=== PATIENT | female | born 1980 | race Caucasian/White ===

== ENCOUNTER 2017-07-14 15:47 | Emergency (ER) | payer OTHER ==
--- NOTE | 2017-07-14 16:42 | PD ---
HPI Chief Complaint Decreased movement Date Seen: Jul 14, 2017 Time Seen: 16:35 Travel History International Travel<30 Days: No Contact w/Intl Traveler<30Days: No Known Affected Area: No History of Present Illness HPI 37-year-old white female at 33 weeks he goes to the [facility] clinic and presents complaining of decreased movement over the last couple of days, no other pains or problems no leakage of fluid or bleeding, heart rate tracing is reactive here on OB ED and the patient says she does feel baby move some since she has been here. 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 Weeks Gestation: 33 Para: 0 : 1 History Social History Alcohol Use: No Tobacco Use: No Substance Abuse: No Allergies-Medications (Allergen,Severity, Reaction): Coded Allergies: No Known Allergies (Verified Allergy, Severe, 07/14/17) Uncoded Allergies: no known allergy (Allergy, Unknown, 07/14/17) Home Meds Reported Medications Buspirone (Buspirone) 10 Mg Tab, 10 MG PO DAILY for Anxiety, TAB 0 Refills 07/14/17 Review of Systems General / Constitutional: No: Fever, Weight Gain, Chills, Other Eyes: No: Diploplia, Blurred Vision, Visual changes, Pain, Photophobia HENT: No: Headaches, Vertigo, Lightheadedness Cardiovascular: No: Irregular Rhythm, Chest Pain or Discomfort, Palpitations, Tachycardia, Syncope, Varicosities, Edema, Cyanosis Respiratory: No: Cough, Short of Breath, Other Gastrointestinal: No: Nausea, Vomiting, Diarrhea Genitourinary: No: Decreased Urinary Output, Oliguria Musculoskeletal: No: Limited ROM, Weakness, Cramping, Edema, Pain Skin: No Rash, No Itching, No Dryness, No Lumps, No Change in Pigmentation, No Change in Nails, No Alopecia, No Lesions Neurologic: No: Weakness, Dizziness, Syncope, Focal Abnormalities, Coordination Problem, Headache, Slurred Speech, Seizures Psychiatric: No: Depression, Suicidal Ideations, Homicidal Ideation Endocrine: No: Heat Intolerance, Cold Intolerance, Polydipsia, Polyuria, Other Physical Exam Narrative GENERAL: Well-nourished, well-developed patient. SKIN: Warm and dry. HEAD: Normocephalic and atraumatic. EYES: No scleral icterus. No injection or drainage. ENT: No nasal drainage noted. Mucous membranes pink. Airway patent. NECK: Supple, trachea midline. No JVD. CARDIOVASCULAR: Regular rate and rhythm without murmurs, gallops, or rubs. RESPIRATORY: Breath sounds equal bilaterally. No accessory muscle use. BREASTS: Bilateral exam showed no masses , no retractions, no nipple discharge. ABDOMEN/GI: Abdomen soft, non-tender, bowel sounds present, no rebound, no guarding Gravid to [33-] weeks size Fundal Height: [-33] GENITOURINARY: External Genitalia: intact and normal in appearance BUS glands: [-] Cervix: [post-] Dilatation: [0-] Effacement: [-0] Station: [-3] ] Membranes: [intact ] Uterine Contractions: [-q 6 min] FHT's: Category: [-1] Baseline: [-133] Reactive: [-R] Variability: [mod-] Decels: [-none] EXTREMITIES: No cyanosis or edema. BACK: Nontender without obvious deformity. No CVA tenderness. NEUROLOGICAL: Awake and alert. Motor and sensory grossly within normal limits. Five out of 5 muscle strength in all muscle groups. Normal speech. MDM Interpretation(s) This patient is a 37-year-old white female at [address] Andujar for care and presents complaining of decreased movement for several days, movement noted here on OB ED by the patient the NST is reactive, however she also is zoe about every 6 minutes but she does not really feel that. Plan to hydrate po if necessary some subcu terbutaline for the contractions. Plan Plan for patient to the observe for kick counts discussed with patient. She is to follow-up with her OB provider. Diagnosis Diagnosis: Primary Impression: Decreased movement affecting management of in third trimester Disposition: 01 DISCHARGE HOME Condition: Stable James Mendoza II, MD Jul 14, 2017 16:41
[2017-07-14] MEDS ORDERED: TERBUTALINE INJ 1 MG/ML AMP SQ ONE (16:45)
[2017-07-14] MEDS ORDERED: BUSP10TA PO (16:45)
== END 2017-07-14 18:13 | disposition home or self-care (01) ==
LOC: HOBED 15:47
DX: O36.8130 Decreased fetal movements, third trimester, not applicable or unspecified (principal); Z3A.33 33 weeks gestation of pregnancy
CPT/HCPCS: 59025; 96372; 99283; J3105

== ENCOUNTER 2017-08-24 18:12 | Inpatient (IN) | payer OTHER ==
[~2017-08-24 18:12] MED LIST: BUSP10TA PO
[2017-08-24] MEDS ORDERED: LACTATED RINGER'S 1000 ML INJ 1,000 ML IV PRN (18:36)
[2017-08-24] MEDS ORDERED: LACTATED RINGER'S 1000 ML INJ 1,000 ML IV SCH (18:36)
[2017-08-24] MEDS ORDERED: LIDOCAINE HCL 1% 50 ML VIAL INFIL PRN (18:45)
[2017-08-24] MEDS ORDERED: OXYTOCIN 30 UNITS-500ML PREMIX 500 ML IV ONE (18:45)
[2017-08-24] MEDS ORDERED: CITRIC ACID-SODIUM CITRATE LIQ 30 ML UDC PO SCH (18:45)
[2017-08-24] MEDS ORDERED: LIDOCAINE HCL 1% 50 ML VIAL I-DERMAL PRN (18:45)
[2017-08-24] MEDS ORDERED: MINERAL OIL 10 ML VIAL TOPICAL PRN (18:45)
[2017-08-24] MEDS ORDERED: ONDANSETRON HCL 4 MG/2 ML VIAL IV PUSH PRN (18:45)
[2017-08-24] MEDS ORDERED: SODIUM CHLORID 0.9% 500 ML INJ 500 ML IV PRN (18:45)
[2017-08-24] MEDS ORDERED: SODIUM CHLOR 0.9% 1000 ML INJ 1,000 ML IV PRN (18:56)
--- NOTE | 2017-08-24 19:21 | HHI.HP ---
History & Physical H&P HPI Chief Complaint ctxs Date Seen: August 24, 2017 Time Seen: 19:15 Travel History International Travel<30 Days: No Contact w/Intl Traveler<30Days: No Known Affected Area: No History of Present Illness HPI pt is a 37 y/o @ 39 3/7 weeks present w/ c/o ctxs. pt. states been having ctxs for the last 2 days that have increased in intensity and frequency throughout the day. pt. cervix checked at pn on 08/23 and was 3cm and on exam today cervix changed to 5 cm. Weeks Gestation: 39 Para: 0 : 1 History (Limited) History Past Medical History Medical History: Denies Significant Hx Obstetric History Obstetric History Past Surgical History Surgical History: No Previous Surgery Family History Family History: Negative Social History Alcohol Use: No Tobacco Use: No Substance Abuse: No Allergies-Medications Allergies-Medications (Allergen,Severity, Reaction): Coded Allergies: No Known Allergies (Verified Allergy, Severe, 07/14/17) Uncoded Allergies: no known allergy (Allergy, Unknown, 07/14/17) Home Meds Reported Medications Buspirone (Buspirone) 10 Mg Tab, 10 MG PO DAILY for Anxiety, TAB 0 Refills 07/14/17 ROS Review of Systems Except as stated in HPI: all other systems reviewed are Neg Physical Exam Physical Exam Narrative GENERAL: Well-nourished, well-developed patient. SKIN: Warm and dry. HEAD: Normocephalic and atraumatic. EYES: No scleral icterus. No injection or drainage. ENT: No nasal drainage noted. Mucous membranes pink. Airway patent. NECK: Supple, trachea midline. No JVD. CARDIOVASCULAR: Regular rate and rhythm without murmurs, gallops, or rubs. RESPIRATORY: Breath sounds equal bilaterally. No accessory muscle use. ABDOMEN/GI: Abdomen soft, non-tender, bowel sounds present, no rebound, no guarding Gravid GENITOURINARY: External Genitalia: intact and normal in appearance Dilatation:5 Effacement: 90 Station: high Presentation: cephalic Membranes: intact Uterine Contractions: q2-3 mins FHT's: Category: 1 Reactive: + Variability: mod EXTREMITIES: No cyanosis or edema. BACK: Nontender without obvious deformity. No CVA tenderness. NEUROLOGICAL: Awake and alert. Motor and sensory grossly within normal limits. Five out of 5 muscle strength in all muscle groups. Normal speech. Data Data Data Vital Signs Reviewed: Yes Orders Orders Ob (2e) Additional Admit Info (08/24/17 18:32) Admit To Inpatient (08/24/17 ) Code Status (08/24/17 18:36) Vital Signs (Adult) .Per protocol (08/24/17 18:36) Activity Oob Ad Janet (08/24/17 18:36) Heart (08/24/17 18:36) Amnioinfusion (08/24/17 18:36) Urinary Catheter Management .ONCE (08/24/17 18:36) Diet Liquid (08/24/17 Dinner) Lactated Ringer's 1000 Ml Inj (Lr 1000 M (08/24/17 18:36) Lactated Ringer's 1000 Ml Inj (Lr 1000 M (08/24/17 18:36) Sodium Chlorid 0.9% 500 Ml Inj (Ns 500 M (08/24/17 18:45) Sodium Chlor 0.9% 1000 Ml Inj (Ns 1000 M (08/24/17 18:56) Lidocaine 1% Inj (50 Ml) (Xylocaine 1% I (08/24/17 18:45) Citric Acid-Sodium Citrate Liq (Bicitra (08/24/17 18:45) Ondansetron Inj (Zofran Inj) (08/24/17 18:45) Fentanyl Inj (Fentanyl Inj) (08/24/17 18:45) Fentanyl Inj (Fentanyl Inj) (08/24/17 18:45) Complete Blood Count With Diff (08/24/17 18:36) Hold Clot (08/24/17 18:36) Abo/Rh Blood Type (08/24/17 18:36) Urinalysis - C+S If Indicated (08/24/17 18:36) Drug Screen, Random Urine (08/24/17 18:36) Ob/Psych Drug Screen, Urine (08/24/17 18:36) Resp Oxygen Non Rebreathe Mask (08/24/17 ) ^ Epidural / Intrathecal Infus (08/24/17 18:36) Oxytocin 30 Units-500ml Premix (Pitocin (08/24/17 18:45) Lidocaine 1% Inj (50 Ml) (Xylocaine 1% I (08/24/17 18:45) Light Mineral Oil (Muri-Lube Oil) (08/24/17 18:45) Inpatient Certification (08/24/17 ) Group B Strep: Negative MDM MDM Medical Record Reviewed: Yes Plan pt. in active labor. pt. to be admitted. fentanyl vs epidural for analgesia. fht reassuring. pt. d/w dr. dietz. Diagnosis Diagnosis: Primary Impression: Uterine contractions Additional Impression: 39 weeks gestation of Spencer Chun Jr., MD August 24, 2017 19:21
[2017-08-24] MEDS ORDERED: fentaNYL 2MCG-BUPIV 0.125% INJ 150 ML EPIDURAL ONE (19:29)
[2017-08-24] MEDS ORDERED: LIDOCAINE 2%/EPINEPHrine 1:100,000 20ML MDV ONE (19:38)
[2017-08-24 19:42] LABS: AUTOMATED NEUTROPHIL # 9.4 TH/MM3 (1.8-7.7); BASOPHIL # 0.1 TH/MM3 (0-0.2); BASOPHIL % 0.4 % (0.0-2.0); EOSINOPHIL # 0.1 TH/MM3 (0-0.4); EOSINOPHIL % 0.5 % (0.0-4.0); HEMATOCRIT 38.9 % (35.0-46.0); HEMOGLOBIN 13.8 GM/DL (11.6-15.3); LYMPH % 20.7 % (9.0-44.0); LYMPHOCYTE # 2.7 TH/MM3 (1.0-4.8); MEAN CELL VOLUME 86.8 FL (80.0-100.0); MEAN CORPUSCULAR HEMOGLOBIN 30.8 PG (27.0-34.0); MEAN CORPUSCULAR HGB CONC 35.5 % (32.0-36.0); MEAN PLATELET VOLUME 10.9 FL (7.0-11.0); MONO % 6.9 % (0.0-8.0); MONOCYTE # 0.9 TH/MM3 (0-0.9); NEUT % 71.5 % (16.0-70.0); PLATELET COUNT 236 TH/MM3 (150-450); RED BLOOD COUNT 4.48 MIL/MM3 (4.00-5.30); WHITE BLOOD COUNT 13.2 TH/MM3 (4.0-11.0)
[2017-08-24 19:46] LABS: BACTERIA, URINE RARE /hpf; BILIRUBIN, URINE NEG (NEG); BLOOD, URINE NEG (NEG); GLUCOSE,URINE NEG (NEG); KETONE, URINE NEG (NEG); MUCUS URINE FEW /lpf (OCC); NITRITE,URINE NEG (NEG); SQUAMOUS EPITHELIAL CELL URINE <1 /hpf (0-5); URINE COLOR YELLOW (YELLW/STRAW); URINE LEUKOCYTE ESTERASE NEG (NEG)
[2017-08-24] MEDS ORDERED: OXYTOCIN 30 UNITS/NS 500ML PREMIX IV PRN (22:15)
--- NOTE | 2017-08-25 02:59 | PD.OB.DELI ---
Weeks gestation: 39 Gest age assessed date: August 25, 2017 Gest age assessed time: 02:58 Pt started active labor?: Yes Active labor start date: August 24, 2017 Active labor start time: 18:45 Medical induction of labor?: No Artificial rupture of membrane: No Anesthesia: Epidural Episiotomy: Midline Vaginal Delivery: Vacuum (x 2 pulls) Presentation: Occiput anterior (EVE) Nuchal Cord: x1 Delayed cord clamping (45 sec): No Infant: Male Delivery date: August 25, 2017 Delivery time: 02:37 One Minute : 3 Five Minute : 7 Placenta: Spontaneous delivery Laceration: Episiotomy Repair: Chromic running, Vicryl running Estimated blood loss: 250cc Kat Jansen MD August 25, 2017 02:59
[2017-08-25] MEDS ORDERED: ZOLPIDEM TARTRATE 5 MG TAB PO PRN (03:00)
[2017-08-25] MEDS ORDERED: ONDANSETRON ODT 4 MG TAB PO PRN (03:00)
[2017-08-25] MEDS ORDERED: BENZOCAINE 20% TOPICAL SPRAY 60 ML CAN TOPICAL PRN (03:00)
[2017-08-25] MEDS ORDERED: OXYTOCIN 30 UNITS-500ML PREMIX 500 ML IV SCH (03:00)
[2017-08-25] MEDS ORDERED: WITCH HAZEL 50%/GLYCERIN 12.5% 40 PAD JAR TOPICAL PRN (03:00)
[2017-08-25] MEDS ORDERED: ACETAMINOPHEN 325 MG TAB PO PRN (03:00)
[2017-08-25] MEDS ORDERED: oxyCODONE/ACETAMINOPHEN 5 MG/325 MG TAB PO PRN (03:00)
[2017-08-25] MEDS ORDERED: DOCUSATE SODIUM 50 MG/SENNA 8.6 MG TAB PO PRN (03:00)
[2017-08-25] MEDS ORDERED: ALUMINUM/MAGNESIUM/SIMETH 30 ML CUP PO PRN (03:00)
[2017-08-25] MEDS ORDERED: SODIUM CHLORIDE 0.9% FLUSH 10 ML FLUSH IV FLUSH PRN (03:00)
[2017-08-25] MEDS: IBUPROFEN 800 MG TAB PO PRN ×2 (06:45→14:50)
[2017-08-25] MEDS: SODIUM CHLORIDE 0.9% FLUSH 10 ML FLUSH IV FLUSH SCH (09:00)
[2017-08-25] MEDS ORDERED: DIPHTH/TETANUS/ACEL PERTUSSIS (BOOSTER) 0.5 ML VIAL/PFS IM ONE (16:00)
[2017-08-25] MEDS ORDERED: MEASLES, MUMPS, RUBELLA VACCINE 0.5 ML VIAL SQ ONE (16:00)
[2017-08-25] MEDS: oxyCODONE/ACETAMINOPHEN 5 MG/325 MG TAB PO PRN (20:11)
[2017-08-26] MEDS: IBUPROFEN 800 MG TAB PO PRN ×3 (00:38→18:16)
[2017-08-26] MEDS: oxyCODONE/ACETAMINOPHEN 5 MG/325 MG TAB PO PRN (00:39)
[2017-08-26] MEDS: SODIUM CHLORIDE 0.9% FLUSH 10 ML FLUSH IV FLUSH SCH (09:00)
--- NOTE | 2017-08-26 10:42 | HHI.OB ---
Subjective Post Day: 1 Remarks Seen in NICU where baby at breast exhausted and some tingling and pain in right hand below IV site no nausea pain controlled Objective Objective Remarks GENERAL: Well-nourished, well-developed patient. CARDIOVASCULAR: Regular rate and rhythm without murmurs, gallops, or rubs. RESPIRATORY: Breath sounds equal bilaterally. No accessory muscle use. ABDOMEN/GI: Abdomen soft, non-tender. Fundus: Firm, non-tender at umbilicus. GENITOURINARY: Light to moderate bleeding. EXTREMITIES: No cyanosis or edema, non-tender, without signs of DVT. Medications and IVs Current Medications Medications (Trade) Dose Ordered Sig/Bert Route Start Time Stop Time Status Last Admin (NS Flush) 2 ml BID IV FLUSH 08/25/17 09:00 (NS Flush) 2 ml UNSCH PRN IV FLUSH 08/25/17 03:00 (Tylenol) 650 mg Q4H PRN PO 08/25/17 03:00 (Motrin) 800 mg Q8H PRN PO 08/25/17 03:00 08/26/17 09:17 (Percocet 5-325 Mg) 1 tab Q4H PRN PO 08/25/17 03:00 08/26/17 00:39 (Percocet 5-325 Mg) 2 tab Q4H PRN PO 08/25/17 03:00 08/25/17 06:45 (Americaine 20% Top Spr) 1 spray Q4H PRN TOPICAL 08/25/17 03:00 (Tucks Pads) 1 applic QID PRN TOPICAL 08/25/17 03:00 (Dolly-Colace) 2 tab Q12H PRN PO 08/25/17 03:00 (Ambien) 5 mg HS PRN PO 08/25/17 03:00 (Mag-Al Plus Susp Liq) 15 ml Q8H PRN PO 08/25/17 03:00 (Zofran Odt) 4 mg Q6H PRN PO 08/25/17 03:00 Assessment/Plan Assessment and Plan Bps good if baby can come to room today will likely go home tomorrow Nadege Hussein MD August 26, 2017 10:42
[2017-08-27] MEDS: IBUPROFEN 800 MG TAB PO PRN (05:51)
--- NOTE | 2017-08-27 10:23 | HHI.OB ---
Subjective Post Day: 2 Remarks mom doing well needs bili lights and will stay extra day with parents going to peds Objective Objective Remarks GENERAL: Well-nourished, well-developed patient. CARDIOVASCULAR: Regular rate and rhythm without murmurs, gallops, or rubs. RESPIRATORY: Breath sounds equal bilaterally. No accessory muscle use. ABDOMEN/GI: Abdomen soft, non-tender. Fundus: Firm, non-tender at umbilicus. GENITOURINARY: Light to moderate bleeding. EXTREMITIES: No cyanosis or edema, non-tender, without signs of DVT. Medications and IVs Current Medications Medications (Trade) Dose Ordered Sig/Bert Route Start Time Stop Time Status Last Admin (NS Flush) 2 ml BID IV FLUSH 08/25/17 09:00 (NS Flush) 2 ml UNSCH PRN IV FLUSH 08/25/17 03:00 (Tylenol) 650 mg Q4H PRN PO 08/25/17 03:00 (Motrin) 800 mg Q8H PRN PO 08/25/17 03:00 08/27/17 05:51 (Percocet 5-325 Mg) 1 tab Q4H PRN PO 08/25/17 03:00 08/26/17 00:39 (Percocet 5-325 Mg) 2 tab Q4H PRN PO 08/25/17 03:00 08/25/17 06:45 (Americaine 20% Top Spr) 1 spray Q4H PRN TOPICAL 08/25/17 03:00 (Tucks Pads) 1 applic QID PRN TOPICAL 08/25/17 03:00 08/26/17 20:48 (Dolly-Colace) 2 tab Q12H PRN PO 08/25/17 03:00 08/26/17 18:16 (Ambien) 5 mg HS PRN PO 08/25/17 03:00 (Mag-Al Plus Susp Liq) 15 ml Q8H PRN PO 08/25/17 03:00 (Zofran Odt) 4 mg Q6H PRN PO 08/25/17 03:00 Assessment/Plan Assessment and Plan Bps good if baby can come to room today will likely go home tomorrow Discharge Planning mom being discharged and parents will go to peds with son circumcision can be done tomorrow Nadege Hussein MD August 27, 2017 10:23
[2017-08-27] MEDS ORDERED: OXYC1TAB63 PO (10:24)
--- NOTE | 2017-08-27 10:25 | HHI.DCPOC ---
Discharge Care Plan Report Symptoms to Your Doctor -Temperature above 100.5 degrees -Redness, of incision or excessive or foul smelling drainage -Unusual pain or calf pain -Increased vaginal bleeding -Painful or difficulty urinating -Feelings of extreme sadness or anxiety after 2 weeks Goals to Promote Your Health * To prevent worsening of your condition and complications * To maintain your health at the optimal level Directions to Meet Your Goals Take your medications as prescribed Follow your dietary instruction Follow activity as directed Ensure plenty of rest for recovery Drink fluids for hydration Keep your appointments as scheduled Take your immunizations and boosters as scheduled If your symptoms worsen call your PCP, if no PCP go to Urgent Care Center or Emergency Room Smoking is Dangerous to Your Health. Avoid second hand smoke Call the 24-hour crisis hotline for domestic abuse at Nadege Hussein MD August 27, 2017 10:25
== END 2017-08-27 13:12 | disposition home or self-care (01) | DRG 775 ==
LOC: HOBED 18:12 → H2EB 18:37 → H1EA 08-25 07:51
PROVIDERS: ADMIT Obstetrics & Gynecology; ATTEND Obstetrics & Gynecology
PROC: 10D07Z6 Extraction of Products of Conception, Vacuum, Via Natural or Artificial Opening (ICD-10-PCS; principal; 2017-08-25)
PROC: 0W8NXZZ Division of Female Perineum, External Approach (ICD-10-PCS; 2017-08-25)
PROC: 3E0S3BZ Introduction of Anesthetic Agent into Epidural Space, Percutaneous Approach (ICD-10-PCS; 2017-08-25)
DX: O80 Encounter for full-term uncomplicated delivery (principal); Z37.0 Single live birth; Z3A.39 39 weeks gestation of pregnancy
CPT/HCPCS: 59025; 80307; 81001; 85025; 86900; 86901; J2590